=== PATIENT | male | born 1940 | race Caucasian/White ===

== ENCOUNTER 2018-04-08 09:47 | Emergency (ER) | payer BC ==
[~2018-04-08] VITALS: Ht 180.3 cm; Wt 75.0 kg
[~2018-04-08 09:47] MED LIST: ARICEPT 5MG PO; ASPIRIN 32325 MG/TAB PO; ASPIRIN E.C. 8181 MG PO; BENAZEPRIL10 MG PO; CALCIUM CITRAT950 MG PO; CARAFATE 1GM1 G PO; CARAFATE S1 GM/10 ML; EPI EZ PEN1 MG/ML IM; FERROUS SU325 MG/TAB PO; FOLIC ACID0.8 MG PO; HYGROTON25 MG PO; LIPITOR80 MG PO; LOPRESSOR 550 MG/TAB PO; LOTENSIN40 MG PO; NITROQUICK0.4 MG SL; NORCO 325 MG-51 TAB PO; PRILOSEC 20MG20 MG PO; PROTONIX 40MG T40 MG PO; TOPROL XL 25MG25 MG PO; TOPROL XL100 MG PO; VITAMIN B-1000 MCG/T PO; VITAMIN C BUFF500 MG PO; VITAMIN C500 MG PO; ZANTAC 7575 MG PO; ZESTRIL 20MG TA20 MG PO; ZESTRIL40 MG PO
[2018-04-08 09:48] VITALS: TEMP 97.9
[2018-04-08 10:20] LABS: HEMATOCRIT 41.6 % (42.0-52.0); HEMOGLOBIN 14.2 g/dl (13.5-18.0); MEAN CELL VOLUME 92 fl (80.0-100.0); MEAN CORPUSCULAR HEMOGLOBIN 32 pg (27.0-31.0); MEAN CORPUSCULAR HGB CONC 34 g/dl (33.0-37.0); MEAN PLATELET VOLUME 9.5 fl (7.4-10.4); PLATELET COUNT 242 K/mm3 (130-400); RED BLOOD COUNT 4.51 M/mm3 (4.20-5.60)
[2018-04-08] MEDS ORDERED: DOXYCYCLINE 10100 MG PO (10:25)
[2018-04-08 10:29] LABS: ALANINE AMINOTRANSFERASE 26 U/L (21-72); ALKALINE PHOSPHATASE 50 U/L (50-136); ANION GAP 12 mmol/L (7-16); AST,SGOT 30 U/L (15-37); BILIRUBIN,TOTAL 0.6 mg/dL (0.0-1.0); BLOOD UREA NITROGEN 30 mg/dL (9-20); CALCIUM 9.9 mg/dL (8.4-10.2); CARBON DIOXIDE 25 mmol/L (22-30); CHLORIDE 98 mmol/L (98-107); CREATININE, serum 1.08 mg/dL (0.66-1.25); GLUCOSE 161 mg/dL (74-106); POTASSIUM 4.4 mmol/L (3.4-5.0); SODIUM 135 mmol/L (137-145); TOTAL PROTEIN 7.2 gm/dL (6.4-8.2)
[2018-04-08 10:42] LABS: TROPONIN-I < 0.012 ng/mL (0.000-0.034)
[2018-04-08 10:43] LABS: INR 1.1 (0.8-3.0); PROTHROMBIN TIME 12.1 SECONDS (9.7-12.8)
[2018-04-08 10:46] LABS: PARTIAL THROMBOPLASTIN TIME 32.9 SECONDS (26.0-37.0)
[2018-04-08 11:09] LABS: BAND 3 % (0-10); BASOPHIL 2 % (0-2); EOSINOPHIL 1 % (0-4); LYMPHOCYTE 31 % (20.0-51.0); NEUTROPHILS 55 % (42.0-75.2); PLATELET ESTIMATE NORMAL (NORMAL)
[2018-04-08 11:52] VITALS: BP 131/64; PULSE 58
== END 2018-04-08 11:52 | disposition home or self-care (01) ==
LOC: COL.ER 09:47
PROVIDERS: Family Medicine
DX: R55 Syncope and collapse (principal); I25.10 Atherosclerotic heart disease of native coronary artery without angina pectoris; Z95.1 Presence of aortocoronary bypass graft
CPT/HCPCS: Q9967

== ENCOUNTER 2018-07-17 09:05 | Emergency (ER) | payer BC ==
[~2018-07-17] VITALS: Ht 180.3 cm; Wt 75.0 kg
[~2018-07-17 09:05] MED LIST changes: +BRILINTA90 MG PO; +DOXYCYCLINE 10100 MG PO; +LEXAPRO 5MG5 MG PO; +LIPITOR 80MG80 MG PO; -LIPITOR80 MG PO; +MELATONIN1 MG PO; +ZANTAC 300300 MG PO
[2018-07-17 09:41] LABS: BASO % 0.7 % (0.0-2.0); EOS # 0.1 (0.0-0.7); EOS % 2.1 % (0-4.0); GRAN # 3.6 (1.4-6.5); GRAN % 62.4 % (42.2-75.2); HEMATOCRIT 46.6 % (42.0-52.0); HEMOGLOBIN 15.5 g/dl (13.5-18.0); LYMPH # 1.2 (1.2-3.4); LYMPH % 20.6 % (20.0-51.0); MEAN CELL VOLUME 94 fl (80.0-100.0); MEAN CORPUSCULAR HEMOGLOBIN 31 pg (27.0-31.0); MEAN CORPUSCULAR HGB CONC 33 g/dl (33.0-37.0); MEAN PLATELET VOLUME 9.7 fl (7.4-10.4); MONO # 0.8 (0.1-0.6); MONO % 13.9 % (1.7-9.3); PLATELET COUNT 157 K/mm3 (130-400); RED BLOOD COUNT 4.95 M/mm3 (4.20-5.60); REDCELL DISTRIBUTION WIDTH-CV 12.4 % (11.5-14.5)
[2018-07-17 09:42] LABS: INR 1.1 (0.8-3.0); PROTHROMBIN TIME 12.1 SECONDS (9.7-12.8)
[2018-07-17 09:46] LABS: ALANINE AMINOTRANSFERASE 31 U/L (21-72); ALBUMIN 4.3 gm/dL (3.5-5.0); ALKALINE PHOSPHATASE 51 U/L (50-136); ANION GAP 11 mmol/L (7-16); AST,SGOT 45 U/L (15-37); BILIRUBIN,TOTAL 0.8 mg/dL (0.0-1.0); BLOOD UREA NITROGEN 18 mg/dL (9-20); CALCIUM 9.6 mg/dL (8.4-10.2); CARBON DIOXIDE 28 mmol/L (22-30); CHLORIDE 100 mmol/L (98-107); CREATININE, serum 0.92 mg/dL (0.66-1.25); GLUCOSE 100 mg/dL (74-106); POTASSIUM 4.5 mmol/L (3.4-5.0); SODIUM 140 mmol/L (137-145); TOTAL PROTEIN 7.4 gm/dL (6.4-8.2)
[2018-07-17 10:04] LABS: TROPONIN-I < 0.012 ng/mL (0.000-0.034)
[2018-07-17] MEDS ORDERED: HCTZ 25MG TAB25 MG PO (10:17)
[2018-07-17] MEDS ORDERED: NORVASC 10MG10 MG PO (10:17)
[2018-07-17 11:27] LABS: COLLECTION METHOD CLEAN CATCH
[2018-07-17 11:42] LABS: MUCOUS Present /lpf; PH 7 (5-8); SQUAMOUS EPITHELIAL None Seen /hpf; URINE APPEARANCE Clear; URINE BACTERIA None Seen /hpf; URINE BILIRUBIN Negative (NEGATIVE); URINE BLOOD Negative (NEGATIVE); URINE COLOR Straw; URINE GLUCOSE Negative (NEGATIVE); URINE KETONE Negative (NEGATIVE); URINE LEUKOCYTE ESTERASE Negative (NEGATIVE); URINE NITRATE Negative (NEGATIVE); URINE PROTEIN(semi-quant) Negative (NEGATIVE); URINE UROBILINOGEN Negative (NEGATIVE); URINE WBC None Seen /hpf
[2018-07-17 12:12] VITALS: BP 144/73; PULSE 44; TEMP 98.2
== END 2018-07-17 12:13 | disposition home or self-care (01) ==
LOC: COL.ER 09:05
PROVIDERS: Emergency Medicine
DX: I10 Essential (primary) hypertension (principal); I25.10 Atherosclerotic heart disease of native coronary artery without angina pectoris; Z95.1 Presence of aortocoronary bypass graft
CPT/HCPCS: J7040

== ENCOUNTER 2018-08-27 15:03 | Outpatient (RCR) | payer BC ==
[~2018-08-27 15:03] MED LIST changes: +HCTZ 25MG TAB25 MG PO; +NORVASC 10MG10 MG PO
== END 2018-08-28 | disposition home or self-care (01) ==
LOC: COL.CR
DX: Z48.812 Encounter for surgical aftercare following surgery on the circulatory system (principal); Z95.5 Presence of coronary angioplasty implant and graft

== ENCOUNTER 2018-10-10 13:03 | Outpatient (RCR) | payer BC | END 2018-10-15 13:00 | disposition home or self-care (01) | LOC: COL.CR 13:03 | DX: Z48.812 Encounter for surgical aftercare following surgery on the circulatory system (principal); Z95.5 Presence of coronary angioplasty implant and graft ==

== ENCOUNTER → 2019-03-21 | Outpatient (CLI) | payer BC | LOC: COL.RAD 08:32 | DX: Z01.812 Encounter for preprocedural laboratory examination (principal); C61 Malignant neoplasm of prostate | CPT/HCPCS: A9503; Q9967 ==

== ENCOUNTER → 2019-04-05 | Outpatient (CLI) | payer BC | LOC: COL.RAD 07:01 | DX: Z01.812 Encounter for preprocedural laboratory examination (principal); C61 Malignant neoplasm of prostate; S76.011A Strain of muscle, fascia and tendon of right hip, initial encounter; M76.891 Other specified enthesopathies of right lower limb, excluding foot ==